=== PATIENT | male | born 2000 | race Caucasian/White ===

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

== ENCOUNTER 2020-05-03 10:30 | Emergency (ER) | payer OTHER ==
[2020-05-03 10:41] VITALS: BP 121/73; PULSE 102; RESP 18; TEMP 99.3
[2020-05-03] MEDS ORDERED: SODIUM CHLORIDE 0.9% 500 ML 500 ML IV STA (10:52)
[2020-05-03] MEDS ORDERED: SODIUM CHLORIDE 0.9% 1,000 ML IV STA (10:52)
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
[2020-05-03 11:12] LABS: Appearance,Urine Clear (Clear); Bilirubin,Urine Negative (Negative); Blood,Urine Negative (Negative); Color,Urine Yellow; Glucose,Urine (UA) Negative (Negative); Ketones,Urine Negative (Negative); Leukocyte Esterase,Urine Negative (Negative); Nitrite,Urine Negative (Negative); PH, Urine 5.5 (5.0-8.0); Protein,Urine Negative (Negative); Specific Gravity,Urine 1.023 (1.001-1.035); Urobilinogen,Urine <2.0 mg/dL (<2.0)
[2020-05-03 11:13] LABS: Basophils % (A) 1 %; Eosinophils % (A) 1 %; HCT 41.1 % (39.0-53.0); HGB 13.9 gm/dL (13.0-17.5); Lymphocytes # (A) 2.3 k/uL (1.0-4.8); Lymphocytes % (A) 48 %; MCHC 33.8 g/dL (31.0-37.0); MCV 85.8 fL (80.0-100.0); Mean Platelet Volume 7.2; Monocytes # (A) 0.4 k/uL (0-1.0); Monocytes % (A) 8 %; Neutrophils % (A) 40 %; Platelet Count 246 k/uL (150-450); Poikilocytosis Slight; RBC 4.79 m/uL (4.30-5.90); RDW 15.2 % (11.5-15.5); WBC 4.9 k/uL (4.0-11.0)
[2020-05-03 11:27] LABS: Anion Gap 10 mmol/L; Blood Urea Nitrogen 15 mg/dL (9-20); Carbon Dioxide 27 mmol/L (22-30); Chloride 103 mmol/L (98-107); Glucose 101 mg/dL (74-99); Potassium 4.2 mmol/L (3.5-5.1); Sodium 140 mmol/L (137-145)
[2020-05-03 11:28] LABS: ALT 272 U/L (4-49); AST 122 U/L (17-59); African American GFR (CKD) >90 (>60 ml/min/1.73 sqM); Albumin 4.6 g/dL (3.5-5.0); Alkaline Phosphatase 69 U/L (38-126); Amylase <30 U/L (30-110); Calcium 9.7 mg/dL (8.4-10.2); Lipase 50 U/L (23-300); Non-African American GFR(CKD) >90 (>60 ml/min/1.73 sqM); Total Bilirubin 0.8 mg/dL (0.2-1.3)
--- NOTE | 2020-05-03 12:02 | CT ---
EXAMINATION TYPE: CT abdomen pelvis w con DATE OF EXAM: 05/03/2020 COMPARISON: 06/30/2012 INDICATION: Left flank pain DLP: 1486 mGycm, Automated exposure control for dose reduction was used. CONTRAST: 100 mL of Isovue 300. Study performed without Oral Contrast TECHNIQUE: Axial images were obtained from above the diaphragm to the pubic rami in the axial plane a t 5 mm thick sections. Reconstructed images are reviewed on the computer in the coronal plane. FINDINGS: Limited CT sections are obtained the lung bases. The lung bases are clear. Some right gynecomastia may be present. CT ABDOMEN: Liver: Normal Spleen: Splenomegaly is present with a craniocaudal dimension of 15.1 cm. Normal less than 12.5 cm. N o splenic fracture is evident. No abnormal fluid collections within the abdomen are evident. Pancreas: Normal Adrenal glands: The adrenal glands are normal. Gallbladder: Normal Kidneys: No masses are evident. No hydronephrosis is present. There is a mid to inferior pole left lateral renal cyst measuring 5 Hounsfield units in the 0.5 cm AP dimension. Delayed images were obta ined through the kidneys, which remain unremarkable. Aorta: Normal Inferior vena cava: Normal. CT PELVIS: Loops of bowel within the abdomen and pelvis are normal. This study is performed without oral con trast limiting bowel evaluation. Appendix: Normal as visualized. Urinary bladder: Decompressed with limited evaluation. Genitourinary structures: Prostate is normal. Osseous structures: No suspicious lytic or sclerotic lesions. IMPRESSIONS: 1. Splenomegaly. 2. No suspicious left flank injury.
== END 2020-05-03 12:36 | disposition home or self-care (01) ==
LOC: EC 10:30
DX: S20.212A Contusion of left front wall of thorax, initial encounter (principal); J45.909 Unspecified asthma, uncomplicated; Z79.1 Long term (current) use of non-steroidal anti-inflammatories (NSAID); Z79.899 Other long term (current) drug therapy; Z88.0 Allergy status to penicillin; W22.01XA Walked into wall, initial encounter
CPT/HCPCS: 36415; 80053; 82150; 83690; 85025; 81003; 74177; 99284; 96360; Q9967

== ENCOUNTER 2021-02-15 22:15 | Emergency (ER) | payer OTHER ==
--- NOTE | 2021-02-15 23:01 | ED ---
Nausea/Vomiting/Diarrhea HPI - General Chief complaint: Nausea/Vomiting/Diarrhea Stated complaint: Abnormal bowel movement Time Seen by Provider: 02/15/21 22:25 Source: patient, RN notes reviewed, old records reviewed Mode of arrival: ambulatory Limitations: no limitations - History of Present Illness Initial comments: This is a 20-year-old male to the emergency or today. Patient Dese for evaluation regards to generalized abdominal pain occasionally worsens with bowel movements persistent diarrhea and rectal pain more persistent rectal pain than baseline. Patient states maybe about 30 pounds weight loss over the past year. No travel history no sick contacts no other new complaints. MD complaint: nausea, diarrhea, abdominal pain -: month(s) Description of Diarrhea: water, mucous Associated Abdominal Pain: Yes Location: diffuse (Rectal pain) Radiation: none Severity scale (1-10): 4 Quality: cramping, aching Consistency: intermittent Improves with: none Worsens with: bowel movement Context: other (none) Associated Symptoms: other (none) - Related Data Home Medications Medication Instructions Recorded Confirmed No Known Home Medications 02/15/21 02/15/21 Allergies Allergy/AdvReac Type Severity Reaction Status Date / Time codeine Allergy Rash/Hives Verified 02/15/21 23:04 Sulfa (Sulfonamide Allergy Rash/Hives Verified 02/15/21 23:04 Antibiotics) Penicillins AdvReac Nausea & Verified 02/15/21 23:04 Vomiting Review of Systems ROS Statement: Those systems with pertinent positive or pertinent negative responses have been documented in the HPI. ROS Other: All systems not noted in ROS Statement are negative. Past Medical History Past Medical History: Asthma Additional Past Medical History / Comment(s): 2020 History of Any Multi-Drug Resistant Organisms: None Reported Past Surgical History: Ear Surgery Additional Past Surgical History / Comment(s): tubes in ears Past Psychological History: No Psychological Hx Reported Smoking Status: Never smoker Past Alcohol Use History: Occasional Past Drug Use History: None Reported General Exam Limitations: no limitations General appearance: alert, in no apparent distress Head exam: Present: atraumatic, normocephalic, normal inspection Eye exam: Present: normal appearance, PERRL, EOMI. Absent: scleral icterus, conjunctival injection, periorbital swelling ENT exam: Present: normal exam, mucous membranes moist Neck exam: Present: normal inspection. Absent: tenderness, meningismus, lymphad enopathy Respiratory exam: Present: normal lung sounds bilaterally. Absent: respiratory distress, wheezes, rales, rhonchi, stridor Cardiovascular Exam: Present: regular rate, normal rhythm, normal heart sounds. Absent: systolic murmur, diastolic murmur, rubs, gallop, clicks GI/Abdominal exam: Present: soft, normal bowel sounds. Absent: distended, tenderness, guarding, rebound, rigid Extremities exam: Present: normal inspection, full ROM, normal capillary refill. Absent: tenderness, pedal edema, joint swelling, calf tenderness Back exam: Present: normal inspection Neurological exam: Present: alert, oriented X3, CN II-XII intact Psychiatric exam: Present: normal affect, normal mood Skin exam: Present: warm, dry, intact, normal color. Absent: rash Course Vital Signs 02/15/21 22:22 Temperature 98.4 F Pulse Rate 99 Respiratory 20 Rate Blood Pressure 152/99 O2 Sat by Pulse 99 Oximetry - Reevaluation(s) Reevaluation #1: 02/15/21 23:01 Record is reviewed Reevaluation #2: 02/16/21 00:51 Patient has no change in symptoms here in the ER Reevaluation #3: 02/16/21 00:51 Patient informed results questions answered possible consistent follow-up with colonoscopy Medical Decision Making - Medical Decision Making 20 male to the emergency department for evaluation patient has negative testing here in the emergency department, patient is given GI physician for further evaluation management - Lab Data Result diagrams: 02/15/21 23:25 02/15/21 23:25 Lab Results 02/15/21 02/15/21 02/15/21 Range/Units 23:25 23:25 23:25 WBC 7.7 (3.8-10.6) k/uL RBC 4.95 (4.30-5.90) m/uL Hgb 15.1 (13.0-17.5) gm/dL Hct 44.2 (39.0-53.0) % MCV 89.1 (80.0-100.0) fL MCH 30.4 (25.0-35.0) pg MCHC 34.1 (31.0-37.0) g/dL RDW 13.5 (11.5-15.5) % Plt Count 241 (150-450) k/uL MPV 7.6 Neutrophils % 68 % Lymphocytes % 23 % Monocytes % 6 % Eosinophils % 1 % Basophils % 1 % Neutrophils # 5.2 (1.3-7.7) k/uL Lymphocytes # 1.8 (1.0-4.8) k/uL Monocytes # 0.5 (0-1.0) k/uL Eosinophils # 0.1 (0-0.7) k/uL Basophils # 0.0 (0-0.2) k/uL Sodium 140 (137-145) mmol/L Potassium 3.9 (3.5-5.1) mmol/L Chloride 99 (98-107) mmol/L Carbon Dioxide 29 (22-30) mmol/L Anion Gap 12 mmol/L BUN 20 (9-20) mg/dL Creatinine 0.75 (0.66-1.25) mg/dL Est GFR (CKD-EPI)AfAm >90 (>60 ml/min/1.73 sqM) Est GFR (CKD-EPI)NonAf >90 (>60 ml/min/1.73 sqM) Glucose 99 (74-99) mg/dL Plasma Lactic Acid Fred 1.5 (0.7-2.0) mmol/L Calcium 10.2 (8.4-10.2) mg/dL Phosphorus 5.3 H (2.5-4.5) mg/dL Magnesium 1.9 (1.6-2.3) mg/dL Total Bilirubin 0.5 (0.2-1.3) mg/dL AST 30 (17-59) U/L ALT 40 (4-49) U/L Alkaline Phosphatase 73 (38-126) U/L Total Protein 8.3 H (6.3-8.2) g/dL Albumin 4.9 (3.5-5.0) g/dL Amylase 46 (30-110) U/L Lipase 42 (23-300) U/L - Radiology Data Radiology results: report reviewed (CT abdomen and pelvis negative for acute disease), image reviewed Disposition Clinical Impression: Abdominal pain, Gastroenteritis Disposition: HOME SELF-CARE Instructions (If sedation given, give patient instructions): Abdominal Pain (ED) Is patient prescribed a controlled substance at d/c from ED?: No Referrals: Niranjan Garcia DO [Primary Care Provider] - 1-2 days Theresa Benson MD [STAFF PHYSICIAN] - 1-2 days
[2021-02-15 23:41] LABS: Basophils % (A) 1 %; Eosinophils # (A) 0.1 k/uL (0-0.7); Eosinophils % (A) 1 %; HCT 44.2 % (39.0-53.0); HGB 15.1 gm/dL (13.0-17.5); Lymphocytes # (A) 1.8 k/uL (1.0-4.8); Lymphocytes % (A) 23 %; MCH 30.4 pg (25.0-35.0); MCHC 34.1 g/dL (31.0-37.0); MCV 89.1 fL (80.0-100.0); Mean Platelet Volume 7.6; Monocytes # (A) 0.5 k/uL (0-1.0); Monocytes % (A) 6 %; Neutrophils # (A) 5.2 k/uL (1.3-7.7); Neutrophils % (A) 68 %; Platelet Count 241 k/uL (150-450); RBC 4.95 m/uL (4.30-5.90); RDW 13.5 % (11.5-15.5); WBC 7.7 k/uL (3.8-10.6)
[2021-02-15 23:58] LABS: ALT 40 U/L (4-49); AST 30 U/L (17-59); African American GFR (CKD) >90 (>60 ml/min/1.73 sqM); Albumin 4.9 g/dL (3.5-5.0); Alkaline Phosphatase 73 U/L (38-126); Amylase 46 U/L (30-110); Anion Gap 12 mmol/L; Blood Urea Nitrogen 20 mg/dL (9-20); Calcium 10.2 mg/dL (8.4-10.2); Carbon Dioxide 29 mmol/L (22-30); Chloride 99 mmol/L (98-107); Glucose 99 mg/dL (74-99); Lipase 42 U/L (23-300); Magnesium 1.9 mg/dL (1.6-2.3); Non-African American GFR(CKD) >90 (>60 ml/min/1.73 sqM); Phosphorus 5.3 mg/dL (2.5-4.5); Potassium 3.9 mmol/L (3.5-5.1); Sodium 140 mmol/L (137-145); Total Bilirubin 0.5 mg/dL (0.2-1.3); Total Protein 8.3 g/dL (6.3-8.2)
--- NOTE | 2021-02-16 00:15 | CT ---
EXAMINATION TYPE: CT abdomen pelvis w con DATE OF EXAM: 02/16/2021 COMPARISON: 05/03/2020 HISTORY: Diarrhea for 1 year. rectal contrast used CT DLP: 1831.1 mGycm Automated exposure control for dose reduction was used. CONTRAST: Performed with IV Contrast, patient injected with 100 mL of Isovue 300. Lung bases are clear. There is no pleural effusion. Heart size is normal. There is no pericardial eff usion. Liver spleen stomach pancreas gallbladder appear intact. The bile ducts are not dilated. Spleen is aura rderline enlarged and measures 14 cm. There is no adrenal mass. Kidneys show satisfactory contrast opacification. There is no hydronephrosi s. Delayed images show normal renal excretion. There is 8 cm cortical cyst lateral left kidney. There is no retroperitoneal adenopathy. Bladder distends smoothly. Appendix is posterior and appears aixa l. There is no mesenteric edema. There is no ascites or free air. There is no bowel obstruction. Lumbar vertebra have normal alignment. Posterior elements are intact. There is no compression fractur e. Bony pelvis is intact. The hip joints are intact. IMPRESSION: Negative CT scan abdomen and pelvis. Normal appendix. No adverse change compared to old exam. Stable left renal cortical cyst and borderline splenomegaly.
[2021-02-16 01:01] VITALS: BP 112/71; PULSE 68; RESP 16; TEMP 98
== END 2021-02-16 01:00 | disposition home or self-care (01) ==
LOC: EC 22:15
DX: K52.9 Noninfective gastroenteritis and colitis, unspecified (principal); Z88.5 Allergy status to narcotic agent; Z88.2 Allergy status to sulfonamides; J45.909 Unspecified asthma, uncomplicated
CPT/HCPCS: 99284 ×2; 36415; 80053; 82150; 83605; 83690; 83735; 84100; 85025; 74177; Q9967

== ENCOUNTER → 2021-05-01 | Outpatient (CLI) | payer OTHER ==
--- NOTE | 2021-05-01 15:21 | NM ---
EXAMINATION TYPE: NM hepatobiliary w EF DATE OF EXAM: 05/01/2021 COMPARISON: Prior exam dated 04/17/2017 HISTORY: Diarrhea R 19.7 TECHNIQUE: After the intravenous administration of 4.99 mCi Tc 99m Mebrofenin hepatobiliary scintigra phy is performed. Immediate images post injection. FINDINGS: There is satisfactory initial accumulation of tracer by the liver. The gallbladder is visualized wit hin 20 minutes. The small bowel activity is noted within 4 minutes. At one hour 8 ounces of oral en sure plus is given to mimic CCK and gallbladder ejection fraction is calculated at 85 %, slightly abo ve the upper limit of the normal range. Therefore there is no scintigraphic evidence of cystic or co mmon bile duct obstruction to suggest acute cholecystitis or gallbladder dyskinesia. IMPRESSION: Findings may be indicative of hyper dynamic gallbladder, findings are similar to prior ex am.
== END | disposition home or self-care (01) ==
LOC: RADNMMAIN 12:56
PROVIDERS: ATTEND Family Medicine
DX: R19.7 Diarrhea, unspecified (principal)
CPT/HCPCS: 78226; A9537

== ENCOUNTER → 2023-09-11 | Outpatient (CLI) | payer OTHER ==
--- NOTE | 2023-09-11 22:07 | US ---
EXAMINATION TYPE: US kidneys/renal and bladder DATE OF EXAM: 09/11/2023 COMPARISON: 04/02/17, CT: 02/15/21 CLINICAL INDICATION: Male, 22 years old with history of R07.2 PRECORDIAL PAIN; pain, follow up on cys t EXAM MEASUREMENTS: Right Kidney: 10.4 x 6.0 x 6.2 cm Left Kidney: 10.9 x 6.4 x 6.9 cm Right Kidney: No hydronephrosis or masses seen Left Kidney: Cyst seen lateral border measuring 9.4 x 8.6 x 5.9cm Bladder: wnl Bilateral Jets seen: Yes IMPRESSION: 1. Large lateral left renal simple cyst.
== END | disposition home or self-care (01) ==
LOC: RADUSWWP 14:07
PROVIDERS: ATTEND Family Medicine
DX: N28.1 Cyst of kidney, acquired (principal)
CPT/HCPCS: 76770